=== PATIENT | female | born 2000 | race Caucasian/White ===

== ENCOUNTER → 2020-03-05 14:40 | Outpatient (CLI) | payer SELFPAY ==
[2013-05-27 06:46] VITALS: BMI 39.1
[2020-03-05 16:58] LABS: hCG Titer Quant., Serum < 1 mIU/mL (1-3)
== END ==
LOC: LAB 14:43
PROVIDERS: Referring Provider Obstetrics & Gynecology; Visit Provider Obstetrics & Gynecology
DX: N91.2 Amenorrhea, unspecified (principal)
CPT/HCPCS: 36415; 84702